=== PATIENT | male | born 2000 | race Caucasian/White ===

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

== ENCOUNTER 2020-09-16 20:48 | Emergency (ER) | payer OTHER ==
[~2020-09-16] VITALS: Ht 172.7 cm; Wt 76.2 kg
[~2020-09-16 20:48] MED LIST changes: +BACTRIM DS TAB1 EAC1 PO
[2020-09-16 22:54] VITALS: BP 135/94
== END 2020-09-16 22:55 | disposition home or self-care (01) ==
LOC: M.ERS 20:48
DX: Z53.21 Procedure and treatment not carried out due to patient leaving prior to being seen by health care provider (principal)